=== PATIENT | male | born 1990 | race African-American/Black ===

== ENCOUNTER 2021-08-23 19:59 | Emergency (ER) | payer OTHER ==
[~2021-08-23] VITALS: Ht 175.3 cm; Wt 98.9 kg
[2021-08-23 20:29] VITALS: BP 154/86
== END 2021-08-23 21:41 | disposition left against medical advice (07) ==
LOC: ER 19:59
PROVIDERS: Nurse Practitioner
DX: U07.1 COVID-19 (principal); B34.9 Viral infection, unspecified; Z88.1 Allergy status to other antibiotic agents